=== PATIENT | female | born 1975 | race Caucasian/White ===

== ENCOUNTER → 2017-08-03 | Outpatient (CLI) | payer BC ==
--- NOTE | 2017-08-03 15:28 | EKG ---
[facility] [address] [place] [address] Test Date: 2017-08-03 Test Time: 15:25:18 Pat Name: ROBERTH CESAR Department: Room: Gender: F Supervisor Claims: BEN : 1975 Requested By: ANNAMARIA ALLEN Order Number: [id number] Reading MD: Measurements Intervals [place] Rate: 98 P: 53 [place]: 118 QRS: 12 QRSD: 90 T: 26 QT: 358 QTc: 459 Interpretive Statements SINUS RHYTHM LEFT ATRIAL ABNORMALITY ABNORMAL ECG RI6.01 No previous ECG available for comparison
[2017-08-03 15:46] LABS: BASO # 0.1 x10^3/uL (0.0-0.2); BASO % 1 % (0-3); EOS % 1 % (0-3); HEMATOCRIT 44.1 % (36.0-47.0); HEMOGLOBIN 14.7 g/dL (12.0-15.5); LYMPH # 2.9 x10^3/uL (1.0-4.8); LYMPH % 23 % (24-48); MEAN CORPUSCULAR HEMOGLOBIN 28 pg (25-35); MEAN CORPUSCULAR HGB CONC 33 g/dL (31-37); MEAN CORPUSCULAR VOLUME 83 fL (79-100); MONO % 8 % (0-9); NEUT % 67 % (31-73); PLATELET COUNT 292 x10^3/uL (140-400); RED BLOOD COUNT 5.32 x10^6/uL (3.50-5.40); RED CELL DISTRIBUTION WIDTH 13.4 % (11.5-14.5); WHITE BLOOD COUNT 13.1 x10^3/uL (4.0-11.0)
[2017-08-03 15:56] LABS: GFR 60.5
== END | disposition home or self-care (01) ==
LOC: EKG 15:09
PROVIDERS: ATTEND Psychiatry & Neurology Neurology
DX: G43.009 Migraine without aura, not intractable, without status migrainosus (principal); R00.1 Bradycardia, unspecified
CPT/HCPCS: 36415; 82565; 82947; 84520; 85025; 85651; 93005